=== PATIENT | male | born 1970 | race Caucasian/White ===

== ENCOUNTER 2019-04-29 10:27 | Outpatient (CLI) | payer BC ==
--- NOTE | 2019-04-29 10:58 | RAD ---
FOUR VIEWS OF THE CERVICAL SPINE: CLINICAL INDICATION: Cervicalgia. COMPARISON: None. FINDINGS: Prevertebral soft tissues are normal appearing. There is mild multilevel disc degenerative disease. L ateral masses are symmetric. Lung apices are clear. IMPRESSION: No acute osseous abnormality. Mild cervical spondylosis. Transcribed Date/Time: 04/29/2019 11:07 AM
== END 2019-04-29 10:28 | disposition home or self-care (01) ==
LOC: RAD 10:27
PROVIDERS: ATTEND Orthopaedic Surgery
DX: M54.2 Cervicalgia (principal); M47.812 Spondylosis without myelopathy or radiculopathy, cervical region
CPT/HCPCS: 72040